=== PATIENT | female | born 1965 | race Two or more races ===

== ENCOUNTER 2020-01-27 08:24 | Outpatient (CLI) | payer OTHER | END 2020-01-27 08:35 | disposition home or self-care (01) | LOC: RAD 08:24 | PROVIDERS: ATTEND Internal Medicine Pulmonary Disease | DX: K44.9 Diaphragmatic hernia without obstruction or gangrene (principal); E04.1 Nontoxic single thyroid nodule; R06.00 Dyspnea, unspecified; J98.01 Acute bronchospasm; Z20.828 Contact with and (suspected) exposure to other viral communicable diseases ==

== ENCOUNTER 2020-02-01 08:20 | Outpatient (CLI) | payer OTHER | END 2020-02-01 08:32 | disposition home or self-care (01) | LOC: NUCLEAR 08:20 | PROVIDERS: ATTEND Internal Medicine Pulmonary Disease | DX: R94.31 Abnormal electrocardiogram [ECG] [EKG] (principal); R06.09 Other forms of dyspnea; J98.01 Acute bronchospasm; Z20.828 Contact with and (suspected) exposure to other viral communicable diseases ==

== ENCOUNTER 2020-04-02 12:32 | Outpatient (CLI) | payer OTHER | END 2020-04-02 12:54 | disposition HB | LOC: SONOGRAMA 12:32 → MAMO-SONO 13:15 | DX: E04.1 Nontoxic single thyroid nodule (principal) ==

== ENCOUNTER 2021-10-15 13:04 | Outpatient (CLI) | payer OTHER | END 2021-10-15 13:10 | disposition home or self-care (01) | LOC: LAB 13:04 | PROVIDERS: ATTEND Obstetrics & Gynecology | DX: E55.9 Vitamin D deficiency, unspecified (principal) ==

== ENCOUNTER 2022-02-22 07:11 | Outpatient (CLI) | payer OTHER | END 2022-02-22 07:21 | disposition home or self-care (01) | LOC: LAB 07:11 | PROVIDERS: ATTEND Specialist | DX: R06.00 Dyspnea, unspecified (principal); M79.10 Myalgia, unspecified site; E78.00 Pure hypercholesterolemia, unspecified; J31.0 Chronic rhinitis; E78.9 Disorder of lipoprotein metabolism, unspecified; I10 Essential (primary) hypertension; R73.03 Prediabetes; K76.0 Fatty (change of) liver, not elsewhere classified ==

== ENCOUNTER 2022-02-22 08:07 | Outpatient (CLI) | payer OTHER | END 2022-02-22 08:14 | disposition home or self-care (01) | LOC: RAD 08:07 | PROVIDERS: ATTEND Specialist | DX: J31.0 Chronic rhinitis (principal); Z86.16 Personal history of COVID-19; R06.00 Dyspnea, unspecified ==

== ENCOUNTER 2022-06-05 12:38 | Outpatient (CLI) | payer OTHER | END 2022-06-05 12:39 | disposition home or self-care (01) | LOC: SONOGRAMA 12:38 | PROVIDERS: ATTEND Obstetrics & Gynecology | DX: N83.201 Unspecified ovarian cyst, right side (principal) ==

== ENCOUNTER 2022-06-28 07:57 | Outpatient (CLI) | payer OTHER | END 2022-06-28 08:01 | disposition home or self-care (01) | LOC: LAB 07:57 | PROVIDERS: ATTEND Obstetrics & Gynecology | DX: N95.1 Menopausal and female climacteric states (principal); E03.8 Other specified hypothyroidism; D50.8 Other iron deficiency anemias; I10 Essential (primary) hypertension; E55.9 Vitamin D deficiency, unspecified; N39.0 Urinary tract infection, site not specified ==

== ENCOUNTER 2022-09-05 07:41 | Outpatient (CLI) | payer OTHER | END 2022-09-05 07:47 | disposition home or self-care (01) | LOC: MAMO-SONO 07:41 | PROVIDERS: ATTEND Obstetrics & Gynecology | DX: N64.4 Mastodynia (principal); Z12.31 Encounter for screening mammogram for malignant neoplasm of breast ==

== ENCOUNTER 2023-03-19 07:26 | Outpatient (CLI) | payer OTHER | END 2023-03-19 07:30 | disposition home or self-care (01) | LOC: SONOGRAMA 07:26 | PROVIDERS: ATTEND Obstetrics & Gynecology | DX: D25.1 Intramural leiomyoma of uterus (principal) ==

== ENCOUNTER 2023-04-22 07:04 | Outpatient (CLI) | payer OTHER ==
[2023-04-22 08:21] LABS: HEMATOCRIT 37.7 % (36.0-45.00); HEMOGLOBIN 12.8 g/dL (12.0-15.00); MEAN CELL VOLUME 93.6 fL (80.00-100.00); MEAN CORPUSCULAR HEMOGLOBIN 31.7 pg (27.00-32.0); MEAN CORPUSCULAR HGB CONC 33.9 g/dl (32.0-36.0); PLATELET COUNT 293 K/uL (150-450); RED BLOOD COUNT 4.03 M/uL (4.00-6.00); RED CELL DISTRIBUTION WIDTH 12.7 % (11.5-14.5)
[2023-04-22 08:24] LABS: PH,URINE 5.5 (5.0-8.0); URINE APPEARANCE Clear; URINE BILIRRUBIN Negative (NEGATIVE); URINE BLOOD Negative; URINE COLOR Yellow; URINE GLUCOSE Negative (NEGATIVE); URINE LEUKOCYTE Moderate; URINE NITRATE Negative; URINE PROTEIN Negative (NEGATIVE)
[2023-04-22 08:27] LABS: URINE BACTERIA 62.9 uL (0.0-1933); URINE EPITHELIAL CELLS 15.9 uL (0.0-38.8)
[2023-04-22 09:08] LABS: ALBUMIN 3.8 gm/dL (3.4-5.0); BILIRUBIN TOTAL 0.38 mg/dL (0.3-1.2); CALCIUM 9.3 mg/dL (8.5-10.1); CHOL HDL RATIO 3.8 (0-5.0); CREATININE SERUM 0.72 mg/dL (0.55-1.02); FREE TRIODOTIRONINE 2.8 pg/ml (2.18-3.98); GFR 83.79; GLOBULINA 3.4 G/DL (2.4-3.5); POTASSIUM 4.33 mEq/L (3.5-5.1); TOTAL PROTEIN 7.2 gm/dL (6.4-8.2); TSH 2.51 uIU/mL (0.358-3.74)
[2023-04-22 11:24] LABS: VITAMIN D3 25 HYDROXY 36.84 ng/ml (30-120)
== END 2023-04-22 07:05 | disposition home or self-care (01) ==
LOC: LAB 07:04
PROVIDERS: ATTEND Obstetrics & Gynecology
DX: N95.1 Menopausal and female climacteric states (principal); E03.8 Other specified hypothyroidism; I10 Essential (primary) hypertension; E55.9 Vitamin D deficiency, unspecified; D50.8 Other iron deficiency anemias; N39.0 Urinary tract infection, site not specified

== ENCOUNTER 2023-10-15 07:19 | Outpatient (CLI) | payer OTHER ==
[~2023-10-15 07:19] MED LIST: CRESTOR10 MG
== END 2023-10-15 07:30 | disposition home or self-care (01) ==
LOC: MAMO-SONO 07:19
PROVIDERS: ATTEND Obstetrics & Gynecology
DX: N64.4 Mastodynia (principal)

== ENCOUNTER 2024-01-12 07:01 | Outpatient (CLI) | payer OTHER | END 2024-01-12 07:04 | disposition home or self-care (01) | LOC: SONOGRAMA 07:01 | PROVIDERS: ATTEND Student in an Organized Health Care Education/Training Program | DX: E04.1 Nontoxic single thyroid nodule (principal) ==

== ENCOUNTER 2024-01-16 07:10 | Outpatient (CLI) | payer OTHER ==
[2024-01-16 09:06] LABS: BILIRUBIN TOTAL 0.54 mg/dL (0.3-1.2); CALCIUM 9.7 mg/dL (8.5-10.1); CHOL HDL RATIO 2.9 (0-5.0); CREATININE SERUM 0.8 mg/dL (0.55-1.02); GFR 73.93; GLOBULINA 3.8 G/DL (2.4-3.5); POTASSIUM 4.58 mEq/L (3.5-5.1); TOTAL PROTEIN 7.8 gm/dL (6.4-8.2); TSH 2.9 uIU/mL (0.358-3.74)
[2024-01-16 09:46] LABS: HEMOGLOBIN 12.9 g/dL (12.0-15.00); MEAN CELL VOLUME 94.4 fL (80.00-100.00); MEAN CORPUSCULAR HEMOGLOBIN 32.2 pg (27.00-32.0); MEAN CORPUSCULAR HGB CONC 34.1 g/dl (32.0-36.0); PLATELET COUNT 259 K/uL (150-450); RED BLOOD COUNT 4.02 M/uL (4.00-6.00); RED CELL DISTRIBUTION WIDTH 12.2 % (11.5-14.5)
== END 2024-01-16 07:16 | disposition home or self-care (01) ==
LOC: LAB 07:10
PROVIDERS: ATTEND Student in an Organized Health Care Education/Training Program
DX: E78.2 Mixed hyperlipidemia (principal); C73 Malignant neoplasm of thyroid gland; D50.8 Other iron deficiency anemias

== ENCOUNTER 2024-03-05 08:14 | Outpatient (CLI) | payer OTHER ==
[2024-03-05 09:15] LABS: HEMATOCRIT 39.8 % (36.0-45.00); HEMOGLOBIN 13.3 g/dL (12.0-15.00); MEAN CELL VOLUME 93.9 fL (80.00-100.00); MEAN CORPUSCULAR HEMOGLOBIN 31.4 pg (27.00-32.0); MEAN CORPUSCULAR HGB CONC 33.4 g/dl (32.0-36.0); PLATELET COUNT 281 K/uL (150-450); RED BLOOD COUNT 4.24 M/uL (4.00-6.00); RED CELL DISTRIBUTION WIDTH 12.9 % (11.5-14.5)
== END 2024-03-05 08:19 | disposition home or self-care (01) ==
LOC: LAB 08:14
DX: D64.9 Anemia, unspecified (principal)

== ENCOUNTER 2024-03-05 08:41 | Outpatient (CLI) | payer OTHER | END 2024-03-05 08:42 | disposition home or self-care (01) | LOC: RAD 08:41 | PROVIDERS: ATTEND Specialist | DX: R06.00 Dyspnea, unspecified (principal) ==

== ENCOUNTER 2024-04-19 07:07 | Emergency (ER) | payer OTHER ==
[~2024-04-19] VITALS: Ht 165.1 cm; Wt 76.2 kg
[2024-04-19] MEDS ORDERED: ALLERGY RELIEF180 MG PO (07:17)
== END 2024-04-19 11:35 | disposition home or self-care (01) ==
LOC: ER 07:09
DX: B34.9 Viral infection, unspecified (principal); Z20.822 Contact with and (suspected) exposure to COVID-19

== ENCOUNTER 2024-08-02 07:07 | Outpatient (CLI) | payer OTHER ==
[~2024-08-02 07:07] MED LIST changes: +ALLERGY RELIEF180 MG PO
== END 2024-08-02 07:09 | disposition home or self-care (01) ==
LOC: SONOGRAMA 07:07
DX: D25.1 Intramural leiomyoma of uterus (principal)

== ENCOUNTER 2024-08-09 07:05 | Outpatient (CLI) | payer OTHER | END 2024-08-09 07:12 | disposition home or self-care (01) | LOC: SONOGRAMA 07:05 | PROVIDERS: ATTEND Student in an Organized Health Care Education/Training Program | DX: E04.1 Nontoxic single thyroid nodule (principal) ==

== ENCOUNTER 2024-08-13 07:08 | Outpatient (CLI) | payer OTHER ==
[2024-08-13 07:49] LABS: URINE BILIRRUBIN Negative (NEGATIVE); URINE BLOOD Negative; URINE COLOR Yellow; URINE GLUCOSE Negative (NEGATIVE); URINE KETONE Negative (NEGATIVE); URINE LEUKOCYTE Negative; URINE NITRATE Negative; URINE PROTEIN Negative (NEGATIVE); URINE UROBILINOGEN 1.0 E.U./dl
[2024-08-13 07:53] LABS: URINE BACTERIA 107.9 uL (0.0-1933); URINE EPITHELIAL CELLS 23.0 uL (0.0-38.8); URINE RBC 3.5 uL (0.0-20.8); URINE WBC 4.9 uL (0.0-23.2)
[2024-08-13 08:03] LABS: BASO % 1.0 % (0.1-1.2); EOS # 0.12 (0.04-0.54); EOS % 2.5 % (0.7-7.0); LYMPH # 2.33 (1.18-3.74); LYMPH % 48.6 % (19.3-53.1); MEAN PLATELET VOLUME 9.10 fl (9.4-12.4); MONO # 0.43 (0.24-0.82); MONO % 9.0 % (4.7-12.5); NEUT # 1.86 (1.56-6.13); NEUT % 38.9 % (34.0-71.1); RED CELL DISTRIBUTION WIDTH 12.3 % (11.6-14.4)
[2024-08-13 08:52] LABS: URINE APPEARANCE CLEAR; URINE CAST 0.00 uL (0.0-1.40)
[2024-08-13 09:05] LABS: ALT/SGPT 31.0 U/L (12-78); AST/SGOT 18.0 U/L (15-37); BILIRUBIN TOTAL 0.51 mg/dL (0.3-1.2); BUN CREA RATIO 26.0 (7.0-25.0); CHOL HDL RATIO 4.8 (0-5.0); CREATININE SERUM 0.77 mg/dL (0.55-1.02); GFR 76.99; GLOBULINA 3.7 G/DL (2.4-3.5); GLUCOSE FASTING 93.0 mg/dL (65-100); HDL 62.0 mg/dl (40-60); LDL 208.0 mg/dl (0-130); OSMOLALITY SERUM 291.0 MOSM/KG (275-295); T3 UPTAKE 33.0 % (30-39); T4 FREE 0.79 NG/ML (0.76-1.46); T4 TOTAL 8.52 UG/DL (4.8-13.9); TSH 1.47 uIU/mL (0.358-3.74); VLDL 24.0 (0-39)
[2024-08-16 09:11] LABS: hav igm Negative (Negative); hep b c Negative (Negative); hep b s ag Negative (Negative)
== END 2024-08-13 08:53 | disposition home or self-care (01) ==
LOC: LAB 07:08
PROVIDERS: ATTEND Student in an Organized Health Care Education/Training Program
DX: E78.2 Mixed hyperlipidemia (principal); I10 Essential (primary) hypertension; D50.8 Other iron deficiency anemias; E03.8 Other specified hypothyroidism; C73 Malignant neoplasm of thyroid gland; Z86.0101 Personal history of adenomatous and serrated colon polyps; Z12.11 Encounter for screening for malignant neoplasm of colon; E78.00 Pure hypercholesterolemia, unspecified; R10.13 Epigastric pain; K29.30 Chronic superficial gastritis without bleeding; R74.01 Elevation of levels of liver transaminase levels

== ENCOUNTER 2024-08-18 06:41 | Outpatient (CLI) | payer OTHER | END 2024-08-18 06:44 | disposition home or self-care (01) | LOC: LAB 06:41 | PROVIDERS: ATTEND Internal Medicine Gastroenterology | DX: Z86.0101 Personal history of adenomatous and serrated colon polyps (principal); Z12.11 Encounter for screening for malignant neoplasm of colon; E78.00 Pure hypercholesterolemia, unspecified; R10.13 Epigastric pain; K29.30 Chronic superficial gastritis without bleeding; R74.01 Elevation of levels of liver transaminase levels ==

== ENCOUNTER 2024-10-08 07:30 | Outpatient (CLI) | payer OTHER ==
[2024-10-08 09:28] LABS: BASO % 1.0 % (0.1-1.2); EOS # 0.09 (0.04-0.54); EOS % 2.2 % (0.7-7.0); LYMPH # 1.97 (1.18-3.74); LYMPH % 48.0 % (19.3-53.1); MEAN PLATELET VOLUME 9.60 fl (9.4-12.4); MONO # 0.33 (0.24-0.82); MONO % 8.0 % (4.7-12.5); NEUT # 1.67 (1.56-6.13); NEUT % 40.8 % (34.0-71.1); RED CELL DISTRIBUTION WIDTH 12.1 % (11.6-14.4)
[2024-10-08 09:46] LABS: ALT/SGPT 25.0 U/L (12-78); AST/SGOT 15.0 U/L (15-37); BILIRUBIN TOTAL 0.57 mg/dL (0.3-1.2); BUN CREA RATIO 18.0 (7.0-25.0); CHOL HDL RATIO 3.5 (0-5.0); CREATININE SERUM 0.76 mg/dL (0.55-1.02); FREE TRIODOTIRONINE 2.64 pg/ml (2.18-3.98); GFR 78.16; GLOBULINA 3.8 G/DL (2.4-3.5); GLUCOSE FASTING 91.0 mg/dL (65-100); HDL 67.0 mg/dl (40-60); LDL 149.0 mg/dl (0-130); OSMOLALITY SERUM 287.0 MOSM/KG (275-295); TSH 2.16 uIU/mL (0.358-3.74); VLDL 18.0 (0-39)
[2024-10-09 11:42] LABS: VITAMIN D3 25 HYDROXY 91.77 ng/ml (30-120)
[2024-10-12 09:08] LABS: ESTRADIOL SERUM 9.2 pg/mL (.)
== END 2024-10-08 07:35 | disposition home or self-care (01) ==
LOC: LAB 07:30
PROVIDERS: ATTEND Obstetrics & Gynecology
DX: E55.9 Vitamin D deficiency, unspecified (principal); D50.8 Other iron deficiency anemias; I10 Essential (primary) hypertension; N95.1 Menopausal and female climacteric states; R73.9 Hyperglycemia, unspecified; E28.310 Symptomatic premature menopause; E03.8 Other specified hypothyroidism

== ENCOUNTER 2024-10-18 07:23 | Outpatient (CLI) | payer OTHER | END 2024-10-18 07:27 | disposition home or self-care (01) | LOC: MAMO-SONO 07:23 | PROVIDERS: ATTEND Obstetrics & Gynecology | DX: N64.4 Mastodynia (principal) ==